=== PATIENT | male | born 1990 | race Caucasian/White ===

== ENCOUNTER 2016-12-22 22:15 | Emergency (ER) | payer OTHER ==
[~2016-12-22] VITALS: Ht 162.6 cm; Wt 56.9 kg
[2016-12-22 22:22] VITALS: BP 112/63
--- NOTE | 2016-12-22 22:55 | NUR ---
TO ER BED 5
--- NOTE | 2016-12-22 22:55 | NUR ---
PATIENT PRESENTS TO ED WITH C/O PENILE PAIN X 1 DAY. MED NO MED HX. PT DENIES N/V/D; SKIN IS PINK/WARM/DRY; AAOX4 WITH EVEN AND STEADY GAIT; LUNGS CLEAR BL; HR EVEN AND REGULAR; PT DENIES ANY FEVER, CP, SOB, OR COUGH AT THIS TIME; PATIENT STATES PAIN OF 6/10 AT THIS TIME; VSS; PATIENT POSITIONED FOR COMFORT; HOB ELEVATED; BEDRAILS UP X2; BED DOWN. ER MD MADE AWARE OF PT STATUS.
[2016-12-22 23:08] VITALS: BP 112/63
--- NOTE | 2016-12-22 23:08 | NUR ---
Patient discharged with v/s stable. Written and verbal after care instructions given and explained. Patient verbalized understanding. Ambulatory with steady gait. All questions addressed prior to discharge. Advised to follow up with PMD. DISCHARGED BY DR SANCHEZ
== END 2016-12-22 23:08 | disposition home or self-care (01) ==
LOC: MED 22:15
DX: N48.1 Balanitis (principal)

== ENCOUNTER 2017-04-16 10:49 | Emergency (ER) | payer OTHER ==
[~2017-04-16] VITALS: Ht 162.6 cm; Wt 57.2 kg
[2017-04-16 10:57] VITALS: BP 120/78
[2017-04-16] MEDS ORDERED: DEXAMETHASONE 10 MG/ML VIAL IM ONE (11:15)
[2017-04-16 12:09] VITALS: BP 117/67
== END 2017-04-16 12:08 | disposition home or self-care (01) ==
LOC: MED 10:49
DX: T78.40XA Allergy, unspecified, initial encounter (principal); L50.9 Urticaria, unspecified; X58.XXXA Exposure to other specified factors, initial encounter
CPT/HCPCS: 96372; 99283; J1100

== ENCOUNTER 2023-07-19 19:24 | Emergency (ER) | payer BC, OTHER ==
[~2023-07-19] VITALS: Ht 160 cm; Wt 61.7 kg
[2023-07-19 20:30] VITALS: BP 132/77; PULSE 69; RESP 17; TEMP 98; O2SAT 98
[2023-07-19] MEDS ORDERED: ONDANSETRON 4 MG ODT PO ONE (23:55)
[2023-07-19] MEDS ORDERED: ACETAMINOPHEN EXTRA STRENGTH 500 MG TAB PO ONE (23:55)
[2023-07-20 01:01] VITALS: BP 112/69; PULSE 58; RESP 15; TEMP 98; O2SAT 100
== END 2023-07-20 01:02 | disposition home or self-care (01) ==
LOC: MED 19:24
DX: S09.90XA Unspecified injury of head, initial encounter (principal); W01.198A Fall on same level from slipping, tripping and stumbling with subsequent striking against other object, initial encounter; Y93.89 Activity, other specified; Y92.89 Other specified places as the place of occurrence of the external cause; Y99.8 Other external cause status
CPT/HCPCS: 70450; 99284; Q0162